=== PATIENT | female | born 1975 | race Caucasian/White ===

== ENCOUNTER 2017-10-02 19:21 | Emergency (ER) | payer OTHER, SELFPAY ==
[2017-10-02] MEDS ORDERED: HYDROcodone/Acetaminophen 5/325 mg Tablet ONE (19:36)
--- NOTE | 2017-10-02 20:01 | RAD ---
RIGHT ANKLE THREE VIEWS: 10/02/17 HISTORY: Stepped in a hole earlier today, felt a pop. Suggestion of some slight soft tissue swelling adjacent to the lateral malleolus. There is what appea r to be some old avulsive injuries of the tip of the fibula but I do not see any definite signs of an acute fracture. IMPRESSION: No definite signs of acute fracture. POS: [facility]
== END 2017-10-02 20:25 | disposition home or self-care (01) ==
LOC: NAV ERS 19:21
DX: S93.401A Sprain of unspecified ligament of right ankle, initial encounter (principal); F17.210 Nicotine dependence, cigarettes, uncomplicated; E03.9 Hypothyroidism, unspecified; Z79.899 Other long term (current) drug therapy; W17.2XXA Fall into hole, initial encounter